=== PATIENT | female | born 1990 | race Caucasian/White ===

== ENCOUNTER 2022-09-28 15:43 | Emergency (ER) | payer SELFPAY ==
[2022-09-28 15:45] VITALS: BP 150/98; PULSE 69; RESP 18; TEMP 36; O2SAT 100; BMI 47.6
--- NOTE | 2022-09-28 16:25 | CM.ED ---
SW Note ELVIRA spoke to patient and her mother, Ramya. Ramya reports patient has no insurance. Ramya inquired about inpatient psych at [facility] and social services assistant advised that [facility] does not have inpatient psych unit. ELVIRA advised that this technical document writer will need to speak to crisis. Per MD patient has been up for days, is manic, thought of SI with cutting. ELVIRA called and updated Leann at [facility]. ELVIRA faxed face sheet to Leann. ELVIRA will continue to update Leann when patient is medically ready. Cinda ROBBINS
--- NOTE | 2022-09-28 16:28 | EDS_ITS ---
HPI HPI - Psych History of Present Illness Chief Complaint: Suicidal Narrative Narrative: 32-year-old female presenting with her mother. Her mother states that just a few weeks ago her daughter was otherwise normal and healthy. She reports that over the last few weeks she has been talking about seeing Satan and being showing signs of OCD. Her mother reports that for the last few days she has not been sleeping well and has been up talking about Satan. Her daughter does admit to suicidal thoughts and has intent to cut her wrists. Her mother states she removed all the knives from the home. Patient has no history of psychiatric disease but her mother reports her father had anxiety and depression as well as multiple attempts of suicide. PFSH PFSH Home Medications NK 09/28/22 [History Last Taken Unknown] Allergy/AdvReac Type Severity Reaction Status Date / Time No Known Allergies Allergy Verified 09/28/22 15:44 Social History Smoking Status: Never smoker ROS ROS ED Constitutional Constitutional ED: Denies chills or fever(s) Eyes Eyes: Denies change in vision or diplopia ENT ENT ED: Denies rhinorrhea or sore throat Cardiovascular Cardiovascular: Denies chest pain or palpitations Respiratory/Chest Respiratory/Chest: Denies cough Gastrointestinal Gastrointestinal: Denies abdominal pain or constipation Genitourinary Genitourinary ED: Denies dysuria or hematuria Musculoskeletal Musculoskeletal: Denies arthralgias or back pain Integumentary Denies abscess Neurologic Neurologic: Denies headache(s) Psychiatric Psychiatric: Reports anxiety, depression, suicidal ideation and suicidal thoughts Endocrine Endocrinology: Denies polydipsia or polyphagia EXAM Physical Exam Const Vital Signs: 09/28/22 15:45 09/28/22 19:18 Temperature 96.8 F L Temperature Source Temporal Pulse Rate 69 Respiratory Rate 18 16 Blood Pressure 150/98 H Blood Pressure Mean 115 Pulse Ox 100 Oxygen Delivery Method Room Air Positive well nourished General Appearance ED: NAD; Negative for pallor HEENT Reports moist mucous membranes normocephalic Eyes PERRL and EOMs intact bilaterally Resp normal respiratory effort and clear to auscultation bilaterally Cardio Rate: regular rate Rhythm: regular rhythm Neuro oriented x3 and CN's II-XII intact bilaterally Sensorium / Orientation: alert Psych denies hallucinations Appearance: bizarre Attitude: evasive and agitated Speech: other Speaks only to her mother Thought Process: disorganized, confused and flight of ideas Thought Content: suicidality and No homicidality Attention / Concentration: attention grossly impaired and concentration grossly impaired Insight: poor Judgement: poor Skin General Skin Exam: Negative for jaundice or pallor MDM MDM MDM Narrative Medical decision making narrative: Patient presenting with acute psychosis, go. This has been rapidly increasing over the last few weeks. No history of mental health disorders in her however her father has some. Patient admits to suicidal ideation with intent to cut her wrists. Her mother had to remove the knives from her home. I did obtain blood work for medical clearance and this is all normal. Patient now medically clear for crisis to evaluate. Patient was evaluated by crisis. They are recommending admission. I do agree with this. Ursine slip was filled out. Crisis requested an EKG which was performed. On my interpretation this is a normal sinus rhythm with a ventricular 68 bpm without sign of ischemic change or dysrhythmia. Impression: 1. Acute psychosis 2. Suicidal ideation Lab Data Attestation: I reviewed the patient's lab results. Labs: Laboratory Results - last 24 hr 09/28/22 09/28/22 09/28/22 17:07 17:07 17:07 WBC 6.9 RBC 4.78 Hgb 14.0 Hct 42.9 MCV 89.7 MCH 29.3 MCHC 32.6 RDW Std Deviation 42.3 RDW Coeff of Alec 12.9 Plt Count 343 MPV 9.6 Immature Gran % (Auto) 0.100 Neut % (Auto) 61.1 Lymph % (Auto) 30.1 [place] % (Auto) 6.7 Eos % (Auto) 1.0 Baso % (Auto) 1.0 Absolute Neuts (auto) 4.2 Absolute Lymphs (auto) 2.08 Nucleated RBC % 0 Sodium 137 Potassium 3.5 Chloride 105 Carbon Dioxide 24.0 Anion Gap 8 BUN 12 Creatinine 0.84 Estim Creat Clear Calc 79.54 Est GFR (MDRD) Af Amer 101 Est GFR (MDRD) Non-Af 83 BUN/Creatinine Ratio 14.3 Glucose 122 H Calcium 10.0 Serum , Qual Urine Opiates Screen Urine Methadone Screen Ur Barbiturates Screen Ur Phencyclidine Scrn Ur Amphetamines Screen MDMA (Ecstasy) Screen U Benzodiazepines Scrn Urine Cocaine Screen U Cannabinoids Screen Ur Drug Screen Comment Ethyl Alcohol < 3.0 09/28/22 09/28/22 17:07 17:07 WBC RBC Hgb Hct MCV MCH MCHC RDW Std Deviation RDW Coeff of Alec Plt Count MPV Immature Gran % (Auto) Neut % (Auto) Lymph % (Auto) [place] % (Auto) Eos % (Auto) Baso % (Auto) Absolute Neuts (auto) Absolute Lymphs (auto) Nucleated RBC % Sodium Potassium Chloride Carbon Dioxide Anion Gap BUN Creatinine Estim Creat Clear Calc Est GFR (MDRD) Af Amer Est GFR (MDRD) Non-Af BUN/Creatinine Ratio Glucose Calcium Serum , Qual NEGATIVE Urine Opiates Screen NEGATIVE Urine Methadone Screen NEGATIVE Ur Barbiturates Screen NEGATIVE Ur Phencyclidine Scrn NEGATIVE Ur Amphetamines Screen NEGATIVE MDMA (Ecstasy) Screen NEGATIVE U Benzodiazepines Scrn NEGATIVE Urine Cocaine Screen NEGATIVE U Cannabinoids Screen NEGATIVE Ur Drug Screen Comment Ethyl Alcohol Discharge Plan Triage Chief Complaint: Suicidal ED Provider: Luis Juarez Dx/Rx/DC Orders Prescriptions: No Action NK Primary Care Provider: Care Physician,No Primary Referrals: NOT,DEFINED [Non-Staff] -
[2022-09-28 17:20] LABS: Absolute Lymphocyte Count 2.08 X10^3/uL (0.83-4.51); Absolute Neutrophil Count 4.2 X10^3/uL (2.0-7.7); Basophil# 0.07 X10^3/uL; Eosinophil# 0.07 X10^3/uL; Hematocrit 42.9 % (37-47); Lymphocyte # 2.08 X10^3/ul (0.83-4.51); Lymphocyte % 30.1 % (19-41); Mean Corp Hgb Conc 32.6 g/dL (32-36); Mean Corpuscular Hgb 29.3 pg (27.0-32.0); Mean Corpuscular Volume 89.7 fL (81-99); Mean Platelet Vol. 9.6 fl (6.2-12.0); Monocyte# 0.46 X10^3/uL; Monocyte% 6.7 % (0-10); NRBC Flagged by Analyzer 0 % (0-5); Neutrophil # 4.22 X10^3/uL (2.7-7.7); Neutrophil % 61.1 % (47-70); Platelet Count 343 K/mm3 (150-450); RBC Distribution Width CV 12.9 % (11.6-14.6); RBC Distribution Width SD 42.3 fl (35.1-43.9); Red Blood Count 4.78 M/mm3 (4.2-5.4); White Blood Count 6.9 K/mm3 (4.4-11.0)
[2022-09-28 17:31] LABS: Anion Gap 8 (5-15); BUN 12 mg/dL (7-18); BUN/Creat Ratio 14.3 RATIO (10-20); Chloride 105 mmol/L (98-107); Creatinine, Serum 0.84 mg/dL (0.55-1.02); EST Glomerular Filtration Rate 83 mL/min (>60); Est Glom Filt Rate - Afr Amer 101 mL/min (>60); Estimated Creatinine Clearance 79.54 ml/min; Glucose 122 mg/dL (74-106); Potassium 3.5 mmol/L (3.5-5.1); Sodium Level 137 mmol/L (136-145)
[2022-09-28 17:47] LABS: Amphetamine Urine VISTA NEGATIVE (<1000 ng/mL); Barbiturate Urine VISTA NEGATIVE (< 200 ng/mL); Benzodiazepine Urine VISTA NEGATIVE (< 200 ng/mL); Cocaine Urine VISTA NEGATIVE (< 300 ng/mL); Ecstacy Urine VISTA NEGATIVE (< 500 ng/mL); Methadone Urine VISTA NEGATIVE (< 300 ng/mL); PCP Urine VISTA NEGATIVE (< 25 ng/mL); THC Urine VISTA NEGATIVE (< 50 ng/mL); Vista UDS pH Range 5
[2022-09-28 17:54] LABS: Internal QC Validated? YES +Cl - CLEAR BKGD; Pregnancy, Serum, hCG Quali. NEGATIVE Negative
[2022-09-28 17:55] LABS: Alcohol, Blood (Medical)-Serum < 3.0 mg/dL
--- NOTE | 2022-09-28 18:07 | ED.RN ---
CRISIS CALLED AT [phone]
--- NOTE | 2022-09-28 18:27 | CM.ED ---
ELVIRA had spoken to Leann from Crisis and advised her that patient has no insurance and will need psych placement. ELVIRA faxed face sheet. ELVIRA faxed referral labs and referral packet to Leann. Leann advised she is finishing up assessment at [facility] and then patient will be seen. ELVIRA updated family member and patient that Leann from Crisis will need to see patient. Plan: Crisis to complete evaluation and assessment. Cinda ROBBINS
[2022-09-28 19:18] VITALS: RESP 16
--- NOTE | 2022-09-28 20:04 | EKG12_ITS ---
Test Reason : [facility] Blood Pressure : / mmHG Vent. Rate : 068 BPM Atrial Rate : 068 BPM P-R Int : 140 ms QRS Dur : 078 ms QT Int : 370 ms P-R-T Axes : 025 032 012 degrees QTc Int : 393 ms Normal sinus rhythm Normal ECG Confirmed by LEATHA PULIDO, KRISTOPHER ([id number]), online editor GREYSON YBARRA ([id number]) on 10/02/2022 11:55:12 AM Referred By: HIRAL Confirmed By:KRISTOPHER ZHANG MD
--- NOTE | 2022-09-28 22:18 | ED.RN ---
Crisis updated that pt. was on a wait list at [facility] but could possibly not be placed until Saturday. This RN informed patient that this was the case as she has limited options due to lack of insurance. Pt. requested to speak to crisis again and pt. informed that crisis would not be able to reassess her until 24 hours after 1st assesment. Pt. and family frustrated but agreeable to plan of care and pt. requested something to help her sleep. Dr. Juarez ordered PO ativan.
[2022-09-28 22:26] VITALS: BP 108/67; PULSE 61
[2022-09-28] MEDS: LORazepam 1 MG Tablet PO (22:26)
[2022-09-29] VITALS (11 sets, daily range): BP systolic 94–121; BP diastolic 61–72; PULSE 85–96; RESP 14–17; O2SAT 96–100
[2022-09-29 00:49] LABS: AST(SGOT) 17 U/L (15-37); Alanine Aminotransfer ALT/SGPT 34 U/L (13-56); Albumin, Serum 3.9 g/dL (3.2-5.0); Alkaline Phosphatase 76 U/L (45-117); Bilirubin, Direct 0.11 mg/dL (0.00-0.30); Protein, Total 7.9 g/dL (6.4-8.2)
--- NOTE | 2022-09-29 01:08 | NURSING ---
Addendum entered by Geno Evangelista 09/29/22 06:15: PENDING BED ASSIGNMENT THEY SAID COULD POSSIBLY TAKE TILL MON Original Note: [facility] CALLED REQUESTED EKG AND LIVER PANEL. WAS JUST FAXED.
--- NOTE | 2022-09-29 02:35 | ED.RN ---
THIS RN TOOK PHONE CALL FROM [facility]. PT INFORMATION NEEDED FOR THEIR REPORT. PHONE CALL TAKEN AT [phone].
--- NOTE | 2022-09-29 09:44 | NURSING ---
CALLED CRISIS FOR UPDATE. TALKED TO ADRI. [facility] HAS A 9 PERSON WAIT LIST.
--- NOTE | 2022-09-29 14:59 | NURSING ---
CALLED CRISIS TO SEE IF PATIENT CAN BE REASSESSED.
--- NOTE | 2022-09-29 15:00 | ED.RN ---
PT REQUESTING TO TALK WITH CRISES WORKER. PT STATES FEELING BETTER AND WANTS TO GO HOME
--- NOTE | 2022-09-29 15:21 | ED.RN ---
CRISIS CALLED AND IS AWARE PT WANTS TO BE REASSESSED. CRISIS IS GOING TO COMMUNICATE WITH HER PIPED POCKET MACHINE OPERATOR TO GET DIRECTION AND IS WILLING TO REASSESS BUT WITH THE REASON SHE IS HERE AND CONCERNS IN INITIAL ASSESSMENT IT IS UNLIKELY THAT HER SITUATION WILL CHANGE
--- NOTE | 2022-09-29 15:38 | ED.RN ---
RISSA FROM CRISES TO COME IN TO SEE PT. DR HUFFMAN MADE AWARE
--- NOTE | 2022-09-29 15:53 | ED.RN ---
DR HUFFMAN AWARE THAT CRISES WILL BE COMING TO EVALUATE PT
--- NOTE | 2022-09-29 17:16 | ED.RN ---
Per crisis and Dr. Juarez still continuing with pink slip and possible placement at [facility] on saturday.
--- NOTE | 2022-09-29 18:29 | ED.RN ---
Sitter and police detective assisted pt up to Rehab floor for a shower.
[2022-09-30] VITALS (10 sets, daily range): BP systolic 111–147; BP diastolic 73–90; PULSE 72–93; RESP 15–22; TEMP 36.7–36.9; O2SAT 97–99
[2022-10-01] VITALS (10 sets, daily range): BP systolic 119–133; BP diastolic 69–90; PULSE 69–106; RESP 15–18; TEMP 36.2–36.9; O2SAT 97–100
--- NOTE | 2022-10-01 10:50 | ED.RN ---
PATIENT REQUESTING RE-EVALUATION. STEPHANIE NOTIFIED.
--- NOTE | 2022-10-01 13:06 | CM.ED ---
GISEL Kemp stated patient is requesting a reevaluation. ELVIRA called Shy at Crisis. Shy stated that she spoke to patient and mother on Saturday. Shy explained that MD Completed the pink slip for patient and on Saturday MD Juarez was refusing to D/C the pink slip. Shy said that an reevaluation will not change anything with the MD is still keeping the pink slip. SW met with patient. She wants a reevaluation. Patient said that she is feeling better. Patient said that being in the hospital (ED) has helped. Patient was asked what has changed and patient said I don't want to live in here. I want to live out there. Patient said that she has counselors from local [facility]. Patient said that she has no psychiatrist. Patient said that she is open to taking psych medication. Patient asked if MD could prescribe medication for her at the hospital and SW advised that patient will need to follow up with a psychiatrist. SW explained to patient that she had a trigger for Saturday that caused her to be SI however if patient is discharged what has changed and how can we ensure that patient will not go back to SI thoughts as she has not learned new behaviors. 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 Patient resides in [place]. Patient stating that she was staying with her mother, who resides in [facility]. ELVIRA will speak to MD and Crisis. ELVIRA spoke to MD An. The pink slip remains in effect per MD. ELVIRA spoke to Shy at Crisis. She said that she spoke to [facility] and on the indigent list patient is number 1 however, [facility] was unable to state what time frame for patient to be admitted to [facility]. Shy said that patient's mother, who spoke for patient, said that it was not Shy's role to keep patient safe. ELVIRA spoke to patient, in the presence of her aunt who patient had given consent for this contract technical writer to speak to her in the presence of the aunt. ELVIRA advised that patient is number 1 on list of no insurance however, this contract technical writer does not know what that means in regards to days or weeks regarding placement. Plan: [facility] Cinda ROBBINS
--- NOTE | 2022-10-01 13:10 | ED.RN ---
PT FAMILY BROUGHT PT LUNCH. SITTER REMAINS AT BEDSIDE. WATER GIVEN. NO FURTHER NEEDS VOICED.
--- NOTE | 2022-10-01 14:42 | CM.ED ---
Addendum entered by Cinda Hensley 10/01/22 18:25: ELVIRA updated patient and her mother. Patient's mother inquired about patient's clothes. ELVIRA advised that patient will wear hospital gown to the facility. ELVIRA called Sonali at [facility]. She said that they want patients to wear the state's clothes but patient can have one outfit, without strings, but only 1 outfit. They do not want patients to come with suitcases etc. Patient and her mother updated. Cinda ROBBINS Original Note: ELVIRA Note ELVIRA called [facility] and left voice mail regarding patient. ELVIRA received call from Sonali at [facility]. No bed today. Will evaluate and review tomorrow. Cinda ROBBINS
--- NOTE | 2022-10-01 18:22 | CM.ED ---
Patient had talked earlier about not having a psychiatrist. Thus, social work msw provided patient's mother with information on [facility] and also [place] [employer] application. Mother said that patient has moved out of her apartment and will be staying with her in [facility]. SW provided updated address to Gilda in registration. SW provided these resources to patient's mother so they may be of assistance after patient is discharged from inpatient psych facility. Cinda ROBBINS
[2022-10-01] MEDS: LORazepam 1 MG Tablet PO (20:59)
[2022-10-02] VITALS (8 sets, daily range): BP systolic 105–123; BP diastolic 65–79; PULSE 69–101; RESP 16–18; TEMP 36.3–36.6; O2SAT 97–99
--- NOTE | 2022-10-02 10:04 | NURSING ---
report called by elliot and transfer form completed. mother here at bedside.
--- NOTE | 2022-10-02 10:57 | CM.ED ---
Addendum entered by Cinda Hensley 10/02/22 14:43: Shy from [facility] called and stated that Masoud had approved for transportation for patient to [place]. Shy will call [facility] to schedule transport. Shy from [facility] called. Transport scheduled for between 6-7pm. ELVIRA requested Shy call [facility] and advise them of the patient's discharge time and she agreed to call [facility]. ELVIRA updated patient that transport is scheduled between 6-7pm. Plan: [facility] Cinda ROBBINS Original Note: ELVIRA Note ELVIRA was advised that transport will be here at 10:30am to pick patient up for transport to [place]. Transport was arranged by corporate legal secretary. ELVIRA spoke to Leann at [facility]. She reports they did not schedule transport for patient. She will speak with Vani and Masoud about the transport. ELVIRA updated patient and her mother and visitor (consent given) and advised that transport, which was scheduled for 10:30 is cancelled due to the counseling center did not set it up. ELVIRA advised that [facility] is working on the transportation currently. Cinda ROBBINS
== END 2022-10-02 21:15 ==
PROVIDERS: Emergency Provider Student in an Organized Health Care Education/Training Program; Visit Provider Student in an Organized Health Care Education/Training Program
DX: R45.851 Suicidal ideations (principal); F23 Brief psychotic disorder; F42.9 Obsessive-compulsive disorder, unspecified; F32.A Depression, unspecified; F41.9 Anxiety disorder, unspecified
CPT/HCPCS: 80048; 80076; 80307; 82077; 84703; 85025; 87811; 93005; 99285